=== PATIENT | male | born 1960 | race Caucasian/White ===

== ENCOUNTER 2018-12-21 09:39 | Day surgery (SDC) | payer OTHER ==
[2018-12-20 15:51] VITALS: BMI 29.4
[2018-12-21 10:21] VITALS: TEMP 98.2
[2018-12-21 12:02] VITALS: BP 114/74; PULSE 67
--- NOTE | 2018-12-24 18:00 | PATH ---
Surgical Pathology Report Patient Name: MICEHLLE GARCIA [facility]. Rec. #: [id number] /Age/Gender: 1960 (Age: 58) / M Account: [id number] Location: [facility]-ENDOSCOPY Taken: 12/21/2018 Received: 12/21/2018 Reported: 12/24/2018 Physicians: Robby Dunbar M.D. Specimen(s) Received A: BX TRANSVERSE COLON POLYP B: BX TERMINAL ILEUM C: BX CECUM Clinical History Diarrhea, colon screening Postoperative diagnosis: Polyp, diverticulosis Final Diagnosis A. TRANSVERSE COLON, POLYP, POLYPECTOMY: TUBULAR ADENOMA. B. TERMINAL ILEUM, BIOPSY: ILEAL MUCOSA WITHOUT SIGNIFICANT PATHOLOGIC FINDINGS. C. CECUM, BIOPSY: COLONIC MUCOSA WITHOUT SIGNIFICANT PATHOLOGIC FINDINGS. Electronically Signed Ирина Kumar M.D. Gross Description A. Received in formalin, labeled "polyp transverse colon" are 3 zuniga, irregular portions of soft tissue ranging from 0.1-0.4 cm. in greatest dimension. The specimens are submitted in toto in one cassette. B. Received in formalin, labeled "biopsy terminal ileum" is a zuniga, irregular portion of soft tissue measuring 0.4 cm. in greatest dimension. The specimen is submitted in toto in one cassette. C. Received in formalin, labeled "biopsy cecum" are 2 zuniga, irregular portions of soft tissue measuring 0.3 and 0.4 cm. in greatest dimension. The specimens are submitted in toto in one cassette. DL/12/21/2018 saudi12/21/2018
== END 2018-12-21 12:02 | disposition home or self-care (01) ==
LOC: JASU-ENDO 09:39
PROVIDERS: ATTEND Internal Medicine Gastroenterology
PROC: 0DBL8ZX Excision of Transverse Colon, Via Natural or Artificial Opening Endoscopic, Diagnostic (ICD-10-PCS; principal; 2018-12-21 09:45)
DX: Z12.11 Encounter for screening for malignant neoplasm of colon (principal); D12.3 Benign neoplasm of transverse colon; K64.8 Other hemorrhoids; K57.30 Diverticulosis of large intestine without perforation or abscess without bleeding
CPT/HCPCS: 87045; 87046; 87177; 87209; 88305-TC

== ENCOUNTER → 2021-02-03 | Day surgery (SDC) | payer OTHER ==
[2021-02-01 14:52] VITALS: BMI 31.7
[2021-02-03 08:17] VITALS: TEMP 97.7
[2021-02-03 10:49] VITALS: BP 127/71; PULSE 60
== END | disposition home or self-care (01) ==
LOC: JASU-ENDO 05:30
PROVIDERS: ATTEND Internal Medicine Gastroenterology
PROC: 0DB78ZX Excision of Stomach, Pylorus, Via Natural or Artificial Opening Endoscopic, Diagnostic (ICD-10-PCS; 2021-02-03)
PROC: 0DB38ZX Excision of Lower Esophagus, Via Natural or Artificial Opening Endoscopic, Diagnostic (ICD-10-PCS; 2021-02-03)
PROC: 0DB98ZX Excision of Duodenum, Via Natural or Artificial Opening Endoscopic, Diagnostic (ICD-10-PCS; principal; 2021-02-03 09:47)
DX: K22.8 Other specified diseases of esophagus (principal); K29.70 Gastritis, unspecified, without bleeding; K29.80 Duodenitis without bleeding; K21.00 Gastro-esophageal reflux disease with esophagitis, without bleeding; K31.5 Obstruction of duodenum; I10 Essential (primary) hypertension; E78.5 Hyperlipidemia, unspecified; K57.30 Diverticulosis of large intestine without perforation or abscess without bleeding
CPT/HCPCS: 88305-TC; 88342-TC